=== PATIENT | female | born 1950 | race Caucasian/White ===

== ENCOUNTER 2018-02-12 08:20 | Outpatient (CLI) | payer OTHER, MEDICARE | END 2018-02-12 08:21 | disposition home or self-care (01) | LOC: DI 08:20 | PROVIDERS: ATTEND Internal Medicine | DX: R60.0 Localized edema (principal); I27.20 Pulmonary hypertension, unspecified | CPT/HCPCS: 93306 ==

== ENCOUNTER 2018-03-31 09:32 | Outpatient (CLI) | payer OTHER, MEDICARE ==
--- NOTE | 2018-03-31 13:58 | Ultrasound Report ---
Procedure Date: 03/31/2018 Accession Number: [id number] / [id number] Procedure: US - Bladder CPT Code: FULL RESULT: EXAM: Bladder DATE: 03/31/2018 11:20 AM CLINICAL HISTORY: URINARY FREQUENCY/NOCTURIA COMPARISON: None. TECHNIQUE: Real-time scanning was performed with static images obtained. FINDINGS: Bladder: The initial bladder volume was 123 mL. A 6 mL postvoid residual bladder volume is noted. Bilateral ureteral jets documented. Normal wall thickness. No masses evident. Other: None. IMPRESSION: No significant bladder postvoid residual. RADIA
== END 2018-03-31 09:33 | disposition home or self-care (01) ==
LOC: DI 09:32
PROVIDERS: ATTEND Internal Medicine
DX: R35.0 Frequency of micturition (principal); R35.1 Nocturia
CPT/HCPCS: 76857

== ENCOUNTER 2018-06-20 23:43 | Emergency (ER) | payer OTHER, MEDICARE ==
[2018-06-21 00:07] LABS: BASOPHILS # (AUTO) 0.1 10^3/uL (0.0-0.1); BASOPHILS % (AUTO) 0.6 %; EOSINOPHILS # (AUTO) 0.3 10^3/uL (0.0-0.7); EOSINOPHILS % (AUTO) 2.7 %; HGB - HEMOGLOBIN 8.1 g/dL (12.0-16.0); LYMPHOCYTES # (AUTO) 2.1 10^3/uL (1.5-3.5); LYMPHOCYTES % (AUTO) 20.3 %; MEAN CORPUSCULAR HEMOGLOBIN 32.2 pg (27.0-31.0); MEAN CORPUSCULAR HGB CONC 35.8 g/dL (32.0-36.0); MEAN PLATELET VOLUME 8.4 fL (7.9-10.8); MONOCYTES # (AUTO) 1.1 10^3/uL (0.0-1.0); MONOCYTES % (AUTO) 10.4 %; NEUTROPHILS # (AUTO) 6.9 10^3/uL (1.5-6.6); PLT - PLATELET COUNT 301 10^3/uL (130-450); RED CELL DISTRIBUTION WIDTH 13.1 % (12.0-15.0); WHITE BLOOD COUNT 10.4 x10^3/uL (4.8-10.8)
[2018-06-21 00:19] LABS: ALBUMIN 2.9 g/dL (3.2-5.5); ALBUMIN/GLOBULIN RATIO 0.9 (1.0-2.2); BILIRUBIN,TOTAL 0.7 mg/dL (0.2-1.0); CALCIUM 8.1 mg/dL (8.5-10.3); CREATININE 0.9 mg/dL (0.4-1.0); TOTAL PROTEIN 6.2 g/dL (6.7-8.2)
[2018-06-21] MEDS ORDERED: SODIUM CHLORIDE 0.9% 1,000 ML IV ONE (00:19)
[2018-06-21 02:07] LABS: BILIRUBIN,URINE NEGATIVE (NEGATIVE); GLUCOSE, URINE (UA) NEGATIVE (NEGATIVE); KETONES,URINE (UA) NEGATIVE (NEGATIVE); LEUKOCYTE ESTERASE, URINE MODERATE (NEGATIVE); NITRITE,URINE NEGATIVE (NEGATIVE); OCCULT BLOOD,URINE NEGATIVE (NEGATIVE); PH,URINE 6.5 PH (5.0-7.5); PROTEIN,URINE NEGATIVE (NEGATIVE); UROBILINOGEN,URINE 0.2 (NORMAL) E.U./dL (NORMAL)
[2018-06-21 02:08] LABS: CLARITY,URINE CLEAR (CLEAR)
[2018-06-21 02:12] LABS: BACTERIA,URINE Rare /HPF (None Seen); RBC,URINE None Seen /HPF (0-5); SQUAMOUS EPITHELIAL CELL,UR MOD Squamous (<= Few)
--- NOTE | 2018-06-21 02:31 | ED Physician Documentation ---
History of Present Illness - Stated complaint Stated Complaint: CONFUSION POST OP - Chief complaint Chief Complaint: Neuro - History obtained from History obtained from: Patient, Family - History of Present Illness Timing: Today - Additonal information Additional information: Patient is a 68 year old female brought in by her family for confusion. Patient had multiple plastic surgeries 4 days prior including breast augmentation, tummy tuck and liposuction. On wednesday (next day) patient had worsening bleeding and swelling so went to see the surgeon and revision was done. Patient was ok for the next few days. This evening family reports that she was more confused. she could answer questions but then would make off the wall comments that would not make sense. patient had no focal neurological deficits. Review of Systems Constitutional: denies: Fever, Chills Eyes: denies: Decreased vision GI: reports: Abdominal Pain. denies: Nausea, Vomiting Skin: reports: Other (surgical lesions) Musculoskeletal: reports: Extremity pain Neurologic: denies: Focal weakness, Numbness, Difficulty speaking Immunocompromised: denies: Immunocompromised PD PAST MEDICAL HISTORY - Past Medical History Past Medical History: No Cardiovascular: None Respiratory: None Neuro: None Endocrine/Autoimmune: None GI: None SENIOR ADVOCATE: None : None HEENT: None Psych: Depression Musculoskeletal: None Derm: None - Past Surgical History Past Surgical History: No General: Hiatal hernia repair /SENIOR ADVOCATE: Hysterectomy - Present Medications Home Medications: Ambulatory Orders Medication Instructions Recorded Confirmed Cephalexin [Keflex] 500 mg PO 06/21/18 Cyclobenzaprine [Flexeril] 06/21/18 Rivaroxaban [Xarelto] 10 mg PO 06/21/18 oxyCODONE [Roxicodone] 5 mg PO ONCE 06/21/18 06/21/18 - Allergies Allergies/Adverse Reactions: Allergies Allergy/AdvReac Type Severity Reaction Status Date / Time Sulfa (Sulfonamide AdvReac Headache Verified 06/21/18 00:00 Antibiotics) - Social History Does the pt smoke?: No Smoking Status: Never smoker Does the pt drink ETOH?: No Does the pt have substance abuse?: No - Immunizations Immunizations are current?: Yes - POLST Patient has POLST: No PD ED PE NORMAL - HEENT HEENT: Atraumatic, PERRL - Derm Derm: Normal color, Warm and dry PD ED PE EXPANDED - General General: Alert - HEENT HEENT: Dry mucous membranes - Cardiac Cardiac: Tachy - Abdomen Abdomen: Other (surgical sites with drains intact) - Psych Psych: Other (awake and alert but confused) Results - Vitals Vitals: Vital Signs - 24 hr 06/20/18 06/21/18 06/21/18 23:55 00:15 00:51 Temperature 37.4 C Heart Rate 104 H 101 H 94 Respiratory 14 28 H 24 Rate Blood Pressure 96/62 117/45 L O2 Saturation 98 96 100 06/21/18 06/21/18 02:15 02:35 Temperature Heart Rate 97 99 Respiratory 24 17 Rate Blood Pressure 105/69 107/55 L O2 Saturation 99 92 Oxygen O2 Source Room air - Labs Labs: Laboratory Tests 06/20/18 06/20/18 06/21/18 23:55 23:55 02:00 WBC 10.4 RBC 2.50 L Hgb 8.1 L Hct 22.5 L MCV 90.0 MCH 32.2 H MCHC 35.8 RDW 13.1 Plt Count 301 MPV 8.4 Neut # (Auto) 6.9 H Lymph # (Auto) 2.1 Dade # (Auto) 1.1 H Eos # (Auto) 0.3 Baso # (Auto) 0.1 Absolute Nucleated RBC 0.00 Nucleated RBC % 0.0 Sodium 133 L Potassium 3.8 Chloride 102 Carbon Dioxide 23 Anion Gap 8.0 BUN 19 Creatinine 0.9 Estimated GFR (MDRD) 63 L Glucose 155 H Calcium 8.1 L Total Bilirubin 0.7 AST 26 ALT 17 Alkaline Phosphatase 50 Total Protein 6.2 L Albumin 2.9 L Globulin 3.3 Albumin/Globulin Ratio 0.9 L Lipase 18 L Urine Color YELLOW Urine Clarity CLEAR Urine pH 6.5 Ur Specific [place] <=1.005 Urine Protein NEGATIVE Urine Glucose (UA) NEGATIVE Urine Ketones NEGATIVE Urine Occult Blood NEGATIVE Urine Nitrite NEGATIVE Urine Bilirubin NEGATIVE Urine Urobilinogen 0.2 (NORMAL) Ur Leukocyte Esterase MODERATE H Urine RBC None Seen Urine WBC >25 H Ur Squamous Epith Cells MOD Squamous H Urine Bacteria Rare Ur Microscopic Review INDICATED Urine Culture Comments NOT INDICATED PD MEDICAL DECISION MAKING - ED course Complexity details: reviewed old records, reviewed results, re-evaluated patient, considered differential, d/w patient, d/w family ED course: Patient was seen and examined at bedside. iv access was gained and labs were drawn. patient was started on a fluid bolus. Patient had no focal deficits and cva, while it was considered was unlikely. Patient's blood work was fairly unremarkable. Urine was collected and was consistent with urinary tract infection. Patient's homeopathic medications were also reviewed and one contained belladonna, and patient's symptoms did fit anticholinergic toxidrome. Patient and family were made aware. Patient's symptoms were clearing while in the emergency department. patient was already on keflex and we decided to continue. patient required no further inpatient testing and was stable for discharge with outpatient follow up. - Sepsis Event Vital Signs: Vital Signs - 24 hr 06/20/18 06/21/18 06/21/18 23:55 00:15 00:51 Temperature 37.4 C Heart Rate 104 H 101 H 94 Respiratory 14 28 H 24 Rate Blood Pressure 96/62 117/45 L O2 Saturation 98 96 100 06/21/18 06/21/18 02:15 02:35 Temperature Heart Rate 97 99 Respiratory 24 17 Rate Blood Pressure 105/69 107/55 L O2 Saturation 99 92 Oxygen O2 Source Room air Departure - Departure Disposition: 01 Home, Self Care Clinical Impression: UTI (urinary tract infection), Delirium Instructions: ED UTI Cystitis Female Follow-Up: Bernardino Andrews MD [Primary Care Provider] - Within 3 Days Comments: I think your symptoms today are being caused by a few different things. You were found to have a urinary tract infection, for which you should continue the keflex. I also think there is a component of delirium from medications and possibly from the supplements you are taking. I would avoid narcotic pain medication and take tylenol 1000mg every 6 hours as needed for pain. You should follow up with your doctor if symptoms persist. You may return to the emergency department at any time for new, worsening or uncontrollable symptoms. Discharge Date/Time: 06/21/18 02:50
[2018-06-21 02:36] VITALS: BP 107/55
== END 2018-06-21 02:50 | disposition home or self-care (01) ==
LOC: ED 23:43
DX: N39.0 Urinary tract infection, site not specified (principal); R41.0 Disorientation, unspecified
CPT/HCPCS: 36415; 51701; 80053; 81001; 81003; 83690; 85025; 87086; 96360; 96361; 99283; 99284

== ENCOUNTER 2019-12-16 07:47 | Outpatient (CLI) | payer BC, MEDICARE | END 2019-12-16 07:48 | disposition home or self-care (01) | LOC: DI 07:47 | PROVIDERS: ATTEND Registered Nurse | DX: E87.70 Fluid overload, unspecified (principal) | CPT/HCPCS: 93306 ==

== ENCOUNTER 2020-10-29 13:54 | Outpatient (CLI) | payer BC, MEDICARE ==
--- NOTE | 2020-10-29 15:24 | XRAY Report ---
PROCEDURE: Ankle 3 View LT INDICATIONS: L ANKLE JOINT PX TECHNIQUE: 3 views of the ankle were acquired. COMPARISON: None FINDINGS: Bones: No fractures or dislocations. Mild periarticular osteophyte formation at the tibiotalar and talonavicular joints. Ankle mortise is normally aligned. No suspicious bony lesions. Soft tissues: No tibiotalar joint effusion. Achilles tendon appears normal. IMPRESSION: Osteoarthritis. No acute fracture. No osseous lesion. If symptoms and/or clinical suspic ion for pathology continue, further assessment with repeat plain films, or advanced imaging (e.g., CT , MRI, or bone scan) is recommended for further assessment. Reviewed by: Paulo Valenzuela MD on 10/29/2020 3:22 PM PST Approved by: Paluo Valenzuela MD on 10/29/2020 3:22 PM PST Station ID: [id number]
== END 2020-10-29 13:55 | disposition home or self-care (01) ==
LOC: DI.N 13:54
PROVIDERS: ATTEND Family Medicine
DX: M19.072 Primary osteoarthritis, left ankle and foot (principal)

== ENCOUNTER 2020-12-12 09:42 | Outpatient (CLI) | payer BC, MEDICARE, OTHER ==
[2020-12-12 10:03] LABS: BASOPHILS # (AUTO) 0.1 10^3/uL (0.0-0.1); BASOPHILS % (AUTO) 1.2 %; EOSINOPHILS # (AUTO) 0.4 10^3/uL (0.0-0.7); HCT - HEMATOCRIT 40.4 % (37.0-47.0); LYMPHOCYTES # (AUTO) 1.9 10^3/uL (1.5-3.5); LYMPHOCYTES % (AUTO) 23.9 %; MEAN CORPUSCULAR HEMOGLOBIN 29.1 pg (27.0-31.0); MEAN CORPUSCULAR HGB CONC 32.2 g/dL (32.0-36.0); MEAN CORPUSCULAR VOLUME 90.4 fL (81.0-99.0); MEAN PLATELET VOLUME 10.4 fL (7.9-10.8); MONOCYTES # (AUTO) 0.7 10^3/uL (0.0-1.0); MONOCYTES % (AUTO) 8.8 %; NEUTROPHILS # (AUTO) 4.9 10^3/uL (1.5-6.6); NEUTROPHILS % (AUTO) 60.9 %; PLT - PLATELET COUNT 315 10^3/uL (130-450); RED BLOOD COUNT 4.47 10^6/uL (4.20-5.40); WHITE BLOOD COUNT 8.1 x10^3/uL (4.8-10.8)
[2020-12-12 10:28] LABS: ALBUMIN 3.9 g/dL (3.2-5.5); ALBUMIN/GLOBULIN RATIO 1.2 (1.0-2.2); ALKALINE PHOSPHATASE 70 IU/L (42-121); ALT ALANINE AMINOTRANSFERASE 21 IU/L (10-60); AST ASPARTATE AMINOTRANSFERASE 20 IU/L (10-42); BILIRUBIN,TOTAL 0.6 mg/dL (0.2-1.0); BUN - BLOOD UREA NITROGEN 30 mg/dL (6-20); CALCIUM 8.8 mg/dL (8.5-10.3); CARBON DIOXIDE - CO2 23 mmol/L (21-32); CHLORIDE 101 mmol/L (101-111); CHOL/HDL RATIO 2.8 (<4.4); CHOLESTEROL 210 mg/dL; GFR - MDRD 55 (>89); GLUCOSE 93 mg/dL (70-100); HDL CHOLESTEROL 74 mg/dL; LDL CHOLESTEROL,CALCULATED 113 mg/dL; LDL/HDL RATIO 1.5 (<4.4); POTASSIUM 3.7 mmol/L (3.5-5.0); SODIUM 136 mmol/L (135-145); TOTAL PROTEIN 7.1 g/dL (6.7-8.2); TRIGLYCERIDES 114 mg/dL; VLDL CHOLESTEROL 23 mg/dL
[2020-12-12 10:34] LABS: CREATININE,URINE 101.2 mg/dL
[2020-12-12 10:36] LABS: MICROALBUMIN,URINE < 0.2 mg/dL (0-300.0)
[2020-12-12 10:38] LABS: THYROID STIMULATING HORMONE 2.46 uIU/mL (0.34-5.60)
[2020-12-12 12:48] LABS: ESTIMATED AVERAGE GLUCOSE 111 mg/dL (70-100); HEMOGLOBIN A1c% 5.5 % (4.27-6.07)
== END 2020-12-12 09:43 | disposition home or self-care (01) ==
LOC: LAB 09:42
PROVIDERS: ATTEND Registered Nurse
DX: Z00.00 Encounter for general adult medical examination without abnormal findings (principal); E16.1 Other hypoglycemia; K21.9 Gastro-esophageal reflux disease without esophagitis; Z87.19 Personal history of other diseases of the digestive system
CPT/HCPCS: 36415; 80053; 80061; 82043; 82570; 83036; 83721; 84443; 85025

== ENCOUNTER 2020-12-25 14:39 | Outpatient (CLI) | payer BC, MEDICARE ==
--- NOTE | 2020-12-26 07:45 | Mammography Report ---
BILATERAL DIGITAL SCREENING MAMMOGRAM 3D/2D: 12/25/2020 CLINICAL: Routine screening. Comparison is made to exams dated: 10/28/2017 mammogram, 01/06/2016 mammogram, 08/13/2014 mammogram, an d 05/16/2010 mammogram - [facility]. The tissue of both breasts is predominant ly fatty. No significant masses, calcifications, or other findings are seen in either breast. There has been no significant interval change. IMPRESSION: NEGATIVE There is no mammographic evidence of malignancy. A 1 year screening mammogram is recommended. This exam was interpreted at Station ID: [id number]. NOTE: For mammograms, a report in lay terms will be sent to the patient. Approximately 15% of breast malignancies will not be visualized mammographically. In the management of a palpable breast mass, a negative mammogram must not discourage biopsy of a clinically suspicious lesion. Electronically Signed By: Pardeep Elizabeth M.D., jr/brittany:12/25/2020 15:45:26 ACR BI-RADS Category 1: Negative 3341F PARENCHYMAL PATTERN: (F) - The breast(s) demonstrate(s) diffuse fatty replacement. BI-RADS CATEGORY: (1) - 1 RECOMMENDATION: (ANNUAL) - Recommend routine annual screening mammography. [id number] 1 year screening LATERALITY: (B)
== END 2020-12-25 14:40 | disposition home or self-care (01) ==
LOC: DI.N 14:39
PROVIDERS: ATTEND Registered Nurse
DX: Z12.31 Encounter for screening mammogram for malignant neoplasm of breast (principal)